=== PATIENT | female | born 1950 | race Caucasian/White ===

== ENCOUNTER 2016-12-26 12:23 | Inpatient (IN) | payer MEDICARE, OTHER ==
[2016-12-26] VITALS (9 sets, daily range): BP systolic 110–146; BP diastolic 51–92; PULSE 48–70; RESP 10–16; O2SAT 95–100
[~2016-12-26] VITALS: Ht 167.6 cm; Wt 111.4 kg
[~2016-12-26 12:23] MED LIST: CITA10TA9 PO; CeFAZolin Inj 2 GM in IV Premix 1 EACH IV ONE; DICL75TA6 PO; ETOD400T PO; LOVA10TA PO; Lactated Ringer's 1,000 ML IV SCH; MULT-1007 PO; OMEG1CAP2 PO; SODIUM CHLORIDE 0.9% IV ONE; TRAM50TA2 PO; VANCOMYCIN IV ONE; ZLP5T PO
[2016-12-26] MEDS ORDERED: CeFAZolin Inj 2 gm / 50mL D5W IV ONE (13:14)
[2016-12-26] MEDS ORDERED: Vancomycin 1,000mg/200 mL NS IV ONE (13:14)
[2016-12-26] MEDS ORDERED: Lactated Ringer's 1,000 ML IV ONE (13:30)
[2016-12-26] MEDS ORDERED: LACT1CAP73 PO (14:06)
[2016-12-26] MEDS ORDERED: Lactated Ringer's 500 ML IV PRN (15:13)
[2016-12-26] MEDS ORDERED: Lactated Ringer's 1,000 ML IV SCH (15:13)
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
[2016-12-26] MEDS ORDERED: EPHEDrine Sulfate 50 mg/mL Inj IVPUSH PRN (15:15)
[2016-12-26] MEDS ORDERED: fentaNYL-PF 50 mCg/mL 2 mL Inj IVPUSH PRN (15:15)
[2016-12-26] MEDS ORDERED: Dexamethasone 4 mg/mL Inj IVPUSH PRN (15:15)
[2016-12-26] MEDS ORDERED: Ondansetron 2 mg/mL 2 mL Inj IVPUSH PRN (15:15)
[2016-12-26] MEDS ORDERED: Phenylephrine 10,000 mCg/mL Inj IVPUSH PRN (15:15)
[2016-12-26] MEDS ORDERED: HYDROmorphone 1 mg/mL Inj IVPUSH PRN (15:15)
[2016-12-26] MEDS ORDERED: MetoCLOpramide 5 mg/mL 2 mL Inj IVPUSH PRN (15:15)
[2016-12-26] MEDS ORDERED: Tranexamic Acid 100 mg/mL 10 mL Inj ONE (15:31)
[2016-12-26] MEDS ORDERED: Gentamicin 40 mg/mL 2 mL Inj IRRIGATION ONE (15:45)
[2016-12-26] MEDS ORDERED: fentaNYL-PF 50 mCg/mL 2 mL Inj ONE (17:08)
[2016-12-26] MEDS ORDERED: Propofol 10,000 mCg/mL 20 mL Inj ONE (17:08)
[2016-12-26] MEDS ORDERED: Bupivacaine-MPF 0.25%/EPI 30 mL Inj INFILTRATE ONE (17:30)
--- NOTE | 2016-12-26 17:53 | PCM.ANEP1 ---
Post Anesthesia PACU Phase 1 Assessment Vital Signs 78, 12, 110/92, 95%, 36.4 Vital Signs Date Time Temp Pulse Resp B/P Pulse Ox O2 Delivery O2 Flow Rate FiO2 12/26/16 13:30 CPAP/BIPAP 12/26/16 13:30 36.1 70 16 146/73 96 Room Air Anesthetic Administered: SAB Level of Alertness: Awake, talking LANG's with Equal Strength: No Pain: No Nausea or Vomiting: No CV Function & Hydration Stable: Yes Airway Device: NONE Oxygen Delivery: Simple Mask Lungs: Clear to Auscultation Dermatome Level: T10 (Umbilicus) Summary UNEVENTFUL SAB PACU Phase 2 Assessment Complications: No Follow up Care: No Patient Instructions Provided: N/A Caleb Lane MD December 26, 2016 17:53
--- NOTE | 2016-12-26 18:42 | NUR ---
Post Op Pt arrived to [facility] room 1010 at 1842 via her own bed. Pt A&Ox3. Denies any pain but states she still feels numb. Bandages C/D/I. Tucked pt in and oriented pt to room. Will give report to shift boss.
--- NOTE | 2016-12-26 19:03 | DRSVH ---
PROCEDURE: X-RAY PELVIS, ONE OR TWO VIEWS ([id number]) INDICATIONS: post op hip R. hip surgery TECHNIQUE: 2 view(s) of the pelvis acquired. COMPARISON: None. FINDINGS: Bones: No fractures or dislocations. No suspicious bony lesions. Expected postoperative alignment of right hip arthroplasty. Moderate left degeneration Soft tissues: Visualized bowel gas pattern is normal. No suspicious soft tissue calcifications. IMPRESSION: Expected postoperative alignment of right hip arthroplasty Dictated by: Remington Ramirez M.D. on 12/26/2016 at 19:00 Approved by: Remington Ramirez M.D. on 12/26/2016 at 19:01
[2016-12-26] MEDS ORDERED: Magnesium Hydroxide 10 mL Oral Concentration PO PRN (19:20)
[2016-12-26] MEDS ORDERED: MetoCLOpramide 5 mg/mL 2 mL Inj IV PRN (19:20)
[2016-12-26] MEDS ORDERED: diphenhydrAMINE 25 mg Capsule PO PRN (19:20)
[2016-12-26] MEDS ORDERED: Ondansetron 2 mg/mL 2 mL Inj IV PRN (19:20)
[2016-12-26] MEDS ORDERED: hydrOXYzine Pamoate 25 mg Capsule PO PRN (19:20)
[2016-12-26] MEDS ORDERED: Sodium Biphos-Phos 133 mL Enema RECTAL PRN (19:20)
[2016-12-26] MEDS ORDERED: HYDROcodone-APAP 5-325 mg Tablet PO PRN (19:20)
[2016-12-26] MEDS ORDERED: LORazepam 0.5 mg Tablet PO PRN (19:20)
[2016-12-26] MEDS ORDERED: Alum-Mag Hydrox-Simeth 30 mL Suspension PO PRN (19:20)
[2016-12-26] MEDS ORDERED: Ondansetron 8 mg ODT Tablet PO PRN (19:20)
[2016-12-26] MEDS: Lactated Ringer's 1,000 ML IV SCH (19:38)
--- NOTE | 2016-12-26 19:45 | OP ---
[address] [address] OPERATIVE REPORT PATIENT: ANDREIA WHYTE V : 1950 MR#: [id number] ADMIT: 12/26/2016 JOB ID: [id number] DATE OF SURGERY: 12/26/2016 PREOPERATIVE DIAGNOSIS(ES): Advanced osteoarthritis, right hip. POSTOPERATIVE DIAGNOSIS(ES): Advanced osteoarthritis, right hip. PROCEDURE: Total hip arthroplasty, right hip. SURGEON: Brian Pedraza MD NEUROPSYCHOLOGY DIRECTOR: Abbie Gregg PA-C (captain's assistant required due to the complexity of the operation) COMPLICATIONS: None. INDICATIONS: Advanced osteoarthritis creating significant disability and uncontrolled by conservative treatment options. The patient understands and accepts the potential for risks and complications, which include but is not limited to neurovascular and thromboembolic events, as well as potential for infection, dislocation, leg length inequality and implant failure. PROCEDURE IN DETAIL: The patient was prepped and draped in usual sterile fashion. An appropriate time-out was established. Radha Langenbeck approach was made. Dissection carried down to the deep fascia. External rotators tagged and released. Capsule was T'd, tagged, and released. The hip was dislocated. Standard femoral neck cut was made and the acetabulum was cleared of soft tissues. The acetabulum was progressively reamed from 49-55. A 56 outer bearing cup was placed in appropriate position and anteversion and abduction. A box osteotome utilized on the distal femur with progressive broaching to a #6 trial broach. Trial reductions performed and a -3.5 neck length with a dual mobility cup was trialed. Excellent stability, appropriate leg lengths and soft tissue tension was achieved. Final implant was placed. Repeat trial reductions with similar outcome and the construct was chosen and assembled. Hip was reduced after the final liner had been placed and the external rotators and capsule were repaired to bone. A #2 Quill was utilized for deep fascial closure, 2-0 Vicryl, 3-0, and a 4-0 intracuticular stitch was utilized for final skin closure. Sterile dressing was applied. The patient was returned to the recovery room in stable condition. She tolerated procedure well. Standard postoperative course recommended.
[2016-12-26 20:16] LABS: APPEARANCE,URINE HAZY (CLEAR,HAZY); COLOR,URINE STRAW (YELLOW); OCCULT BLOOD,URINE TRACE (NEGATIVE)
[2016-12-26 20:17] LABS: UROBILINOGEN,URINE NORMAL (NORMAL)
[2016-12-26] MEDS: Ketorolac 15 mg/mL Inj IV SCH (20:52)
[2016-12-26] MEDS ORDERED: L. A1CAP11 PO (20:56)
[2016-12-26] MEDS: oxyCODONE-Acetamin 5-325 mg Tablet PO PRN (23:17)
[2016-12-27] MEDS: oxyCODONE-Acetamin 5-325 mg Tablet PO PRN ×6 (00:01→20:39)
[2016-12-27] MEDS: Sodium Chloride LOK Flush 10 mL Syringe IV SCH ×3 (00:30→13:57)
[2016-12-27] MEDS: CeFAZolin Inj 2 GM in IV Premix 1 EACH IV SCH ×2 (00:39→08:32)
[2016-12-27 00:45] VITALS: BP 118/66; PULSE 59; RESP 18; O2SAT 98
[2016-12-27] MEDS ORDERED: Vancomycin 1,000 mg/200 mL NS IV ONE (01:30)
[2016-12-27] MEDS: Ketorolac 15 mg/mL Inj IV SCH ×2 (03:16→08:32)
--- NOTE | 2016-12-27 03:33 | NUR ---
Pain/activity Pt reporting pain up to 9/10 and was given Tordal per eMAR, followed shortly by Morphine 2mg IVP. Pain came down to 7/10 and pt was then started on PO pain meds. Initially started with 1 tab of Percocet and after 45 min pain level the same and additional percocet tablet given. Since then pt has been able to sleep and appears comfortabl. Pt placed on 1L O2 via NC to keep O2 sats above 92%, CPox in room. Pt also has a mouthpiece that she uses d/t having smaller airway. Bulky dressing to hip is CDI, pt has full sensation now, pedal pulse palpable, wiggling toes. Schumacher draining clear urine. Slowly advancing diet, so far pt has tolerated jello and was not hungry for more.
[2016-12-27 05:58] VITALS: BP 102/64; PULSE 61; RESP 16; O2SAT 95
[2016-12-27 05:58] LABS: BASOPHILS % (AUTO) 0.2 % (0-3); EOSINOPHILS % (AUTO) 0.4 % (0-5); Mean Corpuscular Volume 77.1 fL (81-100); NEUTROPHILS % (AUTO) 78.1 % (40-74); Platelet Count 291 bil/L (150-400)
--- NOTE | 2016-12-27 06:59 | PCM.PNORTH ---
Subjective Date of Service: December 27, 2016 Visit Information: Reason for Visit Right Hip Arthritis Surgery/Surgery Date R YAAKOV 12/26/16 Post-Op Day # Date of Admission: December 26, 2016 at 17:07 Hospital Day # Subjective Foundation sleeping this morning and easily awakened. Well positioned in bed and no complaints of pain. Patient's family member is in attendance at bedside. Discussed participation with physical therapy and likely discharge to home on postop day #2. Patient and family member have considered home health needs and do have family and friends that will be in attendance at home. We have discussed psychotherapist social worker and I have asked patient to speak with him today regarding any concerns or needs postdischarge for care. Postop General: No Complaints, No Shortness of Breath, No Chest Pain Pain Management: PO, IV Push Objective Exam Objective Alert and oriented 3 and pleasant. Interoperative dressing is clean dry and intact. Calf and thigh are soft and nontender. Toe wiggle and sensation are intact at right lower extremity distally Schumacher catheter is in place and working. Bilateral SCDs are in place. No gait yet as of this time with formal physical therapy. Vital Signs and I/O Vital Sign - Last Date Time Temp Pulse Resp B/P Pulse Ox O2 Delivery O2 Flow Rate FiO2 12/27/16 05:58 36.5 61 16 102/64 95 Room Air Intake and Output 12/26/16 12/26/16 12/27/16 Cumulative From/Thru 15:00 23:00 07:00 12/25/16 10:16 - 12/27/16 06:36 Intake Total 500 ml 710 ml 1069 ml 2279 ml Output Total 330 ml 380 ml 710 ml Balance 500 ml 380 ml 689 ml 1569 ml Intake Oral 400 ml 400 ml IV Total 500 ml 710 ml 669 ml 1879 ml Output Urine Total 130 ml 380 ml 510 ml Estimated Blood Loss 200 ml 200 ml # Bowel Movements 0 0 Lab & Micro Results Laboratory Tests Test 12/26/16 19:59 12/27/16 05:12 Urine Color Straw (YELLOW) Urine Appearance Hazy (CLEAR,HAZY) Urine pH 7.0 (5.0-8.0) Urine Specific Eph[place]im 1.010 (1.003-1.035) Urine Protein Negativemg/dL (NEG,TRACE) Urine Glucose (UA) Negativemg/dL (NEGATIVE) Urine Ketones Negativemg/dL (NEGATIVE) Urine Occult Blood Trace (NEGATIVE) Urine Nitrite Negative (NEGATIVE) Urine Bilirubin Negative (NEGATIVE) Urine Urobilinogen Normalmg/dL (NORMAL) Urine Leukocyte Esterase Negative (NEGATIVE) Urine RBC 0-2/hpf (0-2) Urine WBC 0-5/hpf (0-5) Urine Epithelial Cells Few/hpf (NONE-MOD) Urine Crystals None seen (NONE SEEN) Urine Bacteria Few/hpf (NONE-FEW) Urine Hyaline Casts None/lpf (NONE) Urine Granular Casts None seen (NONE SEEN) Urine Waxy Casts None seen (NONE SEEN) Urine Red Blood Cell Casts None seen (NONE SEEN) Urine White Blood Cell Casts None seen (NONE SEEN) Urine Mucus None seen (None Seen) Urine Trichomonas None seen (NONE SEEN) Urine Yeast None (NONE SEEN) Urinalysis Comment None Urine Culture Reflexed Not indicated White Blood Count 10.8th/mm3 (3.8-10.1) Red Blood Count 4.32mil/mm3 (3.90-5.20) Hemoglobin 10.8g/dL (12.0-15.6) Hematocrit 33.3% (35.0-46.0) Mean Corpuscular Volume 77.1fL (81-100) Mean Corpuscular Hemoglobin 25.0pg (27.0-35.0) Mean Corpuscular Hemoglobin Concent 32.4% (32.0-37.0) Red Cell Distribution Width 14.5% (12.3-15.4) Platelet Count 291bil/L (150-400) Neutrophils (%) (Auto) 78.1% (40-74) Lymphocytes (%) (Auto) 14.1% (14-46) Monocytes (%) (Auto) 7.0% (4-12) Eosinophils (%) (Auto) 0.4% (0-5) Basophils (%) (Auto) 0.2% (0-3) Result Diagram: 12/27/16 0512 General Appearance: Alert, Oriented X3, Cooperative, No Acute Distress Extremities: No Compartment Syndrom Noted, Thigh & Calf Soft/Nontender Postop Sensory Motor: Distal Motor Intact, Movement in Toes, Distal Sensation Intact Activity: Activity per PT, Ambulate with PT (weightbearing as tolerated on the right lower extremity using front wheeled walker) Catheters: Urethral 2 Way Schumacher (discontinue Schumacher on postop day #1 after first PT session.) Assessment & Plan Impression Jolynn Herron is a 66-year-old female seen today on postop day 1 from a right total hip arthroplasty performed on 12/26/[address] Brian Pedraza. She is in good spirits and her family is in attendance at bedside. She has no complaints at this time and she is prepared for physical therapy and discharge as appropriate. Problems: Plan Postoperative day #1 from right total hip arthroplasty performed on 12/26/[address] Brian Pedraza. Weight-bear as tolerated on the right lower extremity using front-wheeled walker. Continue formal physical therapy for mobility, gait and safety. Continue by mouth pain medication as needed avoiding IV pain medication as soon as possible. Continue Lovenox 40 mg subcutaneous daily 10 days postop with transition to ASA 81 mg EC by mouth twice a day for an additional 4 weeks postop for DVT prophylaxis. Change intraoperative dressing on postop day #2 Schumacher catheter is in place and working Discontinue her Schumacher catheter on postop day #1 after first PT session Bilateral SCDs are in place and working today. Nursing please measure and fit for bilateral thigh-high DESTINEE hose as ordered today. technical services representative please consult patient today for discharge planning with possible home health needs. Order placed. Follow-up in [address] [facility] orthopedic clinic with mid-level provider for wound check and suture removal. Follow-up in [address] [facility] orthopedic clinic with Dr. Brian Pedraza with AP pelvis and right crosstable lateral x-ray on arrival. Anticipate discharge to home with family has caregivers on postop day #2. VTE Prophylaxis: Sub-Q Enoxaparin (Lovenox 40 mg subcutaneous 10 days postop with transition to ASA 81 mg EC by mouth twice a day for another 4 weeks postop totaling approximately 6 weeks postoperative DVT prophylaxis), SCDs (bilateral SCDs), DESTINEE Hose (bilateral thigh-high DESTINEE hose) Dinh Whyte PA-C December 27, 2016 06:59
[2016-12-27 08:12] VITALS: BP 94/62; PULSE 64; RESP 16; O2SAT 95
--- NOTE | 2016-12-27 10:18 | NUR ---
Social work Note - Initial Assessment Jolynn Herron is a 66 yr old admitted for scheduled hip replacement. EMR reviewed: Pt has Medicare and [employer] life insurance. Her PCP is Dr Vinson. Pt has DPOA - Daughter Poornima Herron. No LTC, No VA benefits. Readmit score is 3 - See attached CM initial assessment. CLINICAL QUALITY MANAGER met with pt - introduced d/c planning and explained SW role. Pt lives at home alone. She has been independent at baseline. She states she would prefer that she go to SNF but understands that insurance may not authorize it. MD is recommending Home Health - Pt worked with PT today and PT is recommending Home Health. Pt has DME: [facility]. She has family in the area. CLINICAL QUALITY MANAGER provided choices list - Pt asked that a referral be sent to [facility]. Assessment: Pt had elective hip replacement - would benefit from Home Health Plan: Home with [facility] and family providing support. JESUS Sampson Addendum: 12/27/16 at 1027 by JODEE ROMANO SS Amended: Links added.
[2016-12-27] MEDS: Lactated Ringer's 1,000 ML IV SCH (12:00)
--- NOTE | 2016-12-27 12:06 | NUR ---
STUDENT NURSE SHIFT NOTE Pt postop day 1 YAAKOV. Pt is pleasant and a&o x3. Pain has been well-controlled at with scheduled Toradol and PRN oxycodone. Scheduled Toradol now DC'd. Pt up with P.T. today, which she tolerated well according to pt and P.T. Applied DESTINEE hose to both legs, and reapplied SCDs. Family will come back to work with P.T. in order to assist pt at home. Plan to hopefully discharge tomorrow. Addendum: 12/27/16 at 1209 by AMBER NAVA PRN pain med is percocet (oxycodone/acet)
--- NOTE | 2016-12-27 13:59 | NUR ---
POST-OP PROGRESS Percocet 2 tabs PO has been helpful for pain control. Patient rated her pain as 3-5/10 on her R hip. Tolerating liquids PO and her diet well. Denies nausea. No emesis noted. Denies SOB. Patient was able to get OOB with PT. Tolerated activity well. Dressing is CDI. IFC intact and draining to magda colored UO. Adis quique and SCD's are on.
[2016-12-27 14:34] VITALS: BP 108/68; PULSE 66; RESP 20; O2SAT 97
[2016-12-27 20:34] VITALS: BP 93/57; PULSE 72; RESP 18; O2SAT 91
[2016-12-28] MEDS: Sodium Chloride LOK Flush 10 mL Syringe IV SCH ×3 (02:28→15:26)
[2016-12-28] MEDS: oxyCODONE-Acetamin 5-325 mg Tablet PO PRN ×3 (02:28→20:49)
[2016-12-28] MEDS: Lactated Ringer's 1,000 ML IV SCH ×2 (04:40→21:20)
--- NOTE | 2016-12-28 05:05 | NUR ---
Pain Patient states tolerable pain however has not ambulated, has however slept majority of shift on 1L O2 d/t hx of AFIA. Dressings CDI. Denies nausea, CP, SOB, and abdominal discomfort. Encouraged deep breaths and coughs. Bed in low position, call light within reach and continued intentional rounding.
[2016-12-28 05:46] VITALS: BP 96/61; PULSE 74; O2SAT 98
[2016-12-28 11:00] VITALS: BP 99/52; PULSE 73; RESP 18; O2SAT 98
--- NOTE | 2016-12-28 11:29 | PCM.PNORTH ---
Subjective Date of Service: December 28, 2016 Visit Information: Reason for Visit Right Hip Arthritis Surgery/Surgery Date R YAAKOV 12/26/16 Post-Op Day # 2 Date of Admission: December 26, 2016 at 17:07 Hospital Day # Subjective Patient is having continued numbness on the lateral aspect of her right hip. She states it is around the operative area. She states she cannot feel pain but can feel pressure and has no decreased motor function. She has no sensation deficit in the left leg, groin or right lower leg. Patient states she has no pain. She states she worked with physical therapy and was hesitant to use her operative leg which caused her difficulties with ambulation as well as getting out of bed. Patient verbalized knowledge of her hip precautions. Postop General: No Complaints, No Shortness of Breath, No Chest Pain Pain Management: PO, IV Push Objective Exam Objective Patient sitting up in chair Vital Signs and I/O Vital Sign - Last Date Time Temp Pulse Resp B/P Pulse Ox O2 Delivery O2 Flow Rate FiO2 12/28/16 11:00 36.7 73 18 99/52 98 Room Air 12/28/16 05:46 2.00 Intake and Output 12/27/16 12/27/16 12/28/16 Cumulative From/Thru 15:00 23:00 07:00 12/25/16 10:16 - 12/28/16 06:47 Intake Total 431 ml 1120 ml 350 ml 4180 ml Output Total 300 ml 550 ml 1560 ml Balance 431 ml 820 ml -200 ml 2620 ml Intake Oral 1120 ml 350 ml 1870 ml IV Total 431 ml 2310 ml Output Urine Total 300 ml 550 ml 1360 ml Estimated Blood Loss 200 ml # Bowel Movements 0 0 Result Diagram: 12/27/16 0512 General Appearance: Alert, Oriented X3, Cooperative, No Acute Distress Extremities: Distal Pulses Palpable, No Compartment Syndrom Noted, Tenderness/ Swelling Noted Postop Sensory Motor: Distal Motor Intact, Movement in Toes, Distal Sensation Intact, NVI Distally SURGICAL WOUND : Wound Location/Description Perioperative dressing c/d/i Incision General Appearance: No Direct Observation Activity: Activity per PT, Ambulate with PT (weightbearing as tolerated on the right lower extremity using front wheeled walker) Assessment & Plan Impression Postop day #2 right total hip arthroplasty Problems: Plan Weightbearing: Weightbearing as tolerated from a walker DVT prophylaxis: Aspirin 81 mg twice a day 6 weeks Physical therapy for transfers, progressive ambulation, strengthening Wound care: Perioperative dressing should be changed to an island dressing today. Change as needed Analgesia: Oral pain management. Discharge plan: Discharge home vs home with HH tomorrow. Start outpatient physical therapy next week if not initiating home health PT. Follow-up plan: In 2 weeks at [facility] with PA for wound check and at [address] Pedraza with x-rays VTE Prophylaxis: Sub-Q Enoxaparin (Lovenox 40 mg subcutaneous 10 days postop with transition to ASA 81 mg EC by mouth twice a day for another 4 weeks postop totaling approximately 6 weeks postoperative DVT prophylaxis), SCDs (bilateral SCDs), DESTINEE Hose (bilateral thigh-high DESTINEE hose) Abbie Gregg PA-C December 28, 2016 11:29
[2016-12-28 15:09] VITALS: BP 102/61; PULSE 73; RESP 20; O2SAT 97
--- NOTE | 2016-12-28 16:39 | NUR ---
Social Work Note: D&A: Reviewed chart. Spoke with Prasanth and therapy. Medical team unsure on d/c date and plan. Met with pt. and daughter Poornima at bedside explained role. Pt. reports that she plans to go home at time of d/c. Pt. hopeful that she will qualify for home health. Pt. meets homebound criteria and feels that going to/from outpt. therapy will be a taxing effort. Updated Prasanth and F2F left in chart for signature. Abbie aware that order will need to be obtained from medical team for home health. Pt. signed important message from Medicare today at approximately 4:00pm. D/C date unknown at this time. Pt. confirms that [facility] preferred [facility] health provider. P: LOBSTER MAN to f/u closely for d/c planning needs. Pt. plans to d/c home with home health when medically stable. CLARISA/ to finalize with pt. prior to d/c. OWEN Bolton
--- NOTE | 2016-12-28 19:19 | NUR ---
Activity Pt's pain well controlled during shift with only using pain medication once, pt stated she felt like hip was still numb this AM. Able to work with PT twice and up to BR as well. Schumacher out at 0910 and pt able to void 500ml by 1100. Dressing is CDI and ice bag is in place. Bed in low, call light in reach, continue to monitor.
[2016-12-28 20:03] VITALS: BP 113/56; PULSE 82; RESP 16; O2SAT 93
[2016-12-29] MEDS: Sodium Chloride LOK Flush 10 mL Syringe IV SCH ×2 (01:15→11:05)
--- NOTE | 2016-12-29 02:36 | NUR ---
Pain Patient states she has had very little pain since surgery. Prior to bed patient stated her pain increased 4/10 as she got up to use bedside commode. Two Percocet were given. Patient sleeping with 1L O2 nasal canula at 96%. Vitals stable.
[2016-12-29] MEDS: oxyCODONE-Acetamin 5-325 mg Tablet PO PRN ×4 (05:44→15:46)
[2016-12-29 06:51] VITALS: BP 115/68; PULSE 70; RESP 16; O2SAT 96
--- NOTE | 2016-12-29 09:35 | PCM.PNORTH ---
Subjective Date of Service: December 29, 2016 Visit Information: Reason for Visit Right Hip Arthritis Surgery/Surgery Date R YAAKOV 12/26/16 Post-Op Day # 3 Date of Admission: December 26, 2016 at 17:07 Hospital Day # Subjective Patient states she has regained sensation on the lateral aspect of her hip and is having pain, however she states it is a tolerable amount of pain. Patient expresses concerns about going home as she feels she will have difficulty getting up from a chair or out of bed safely without dislocating her hip. She also expresses concerns with her ambulation in that she is weaker than she was before surgery and is worried about falling. Postop General: No Complaints, No Shortness of Breath, No Chest Pain Pain Management: PO, IV Push Objective Exam Objective Sitting up in bed Vital Signs and I/O Vital Sign - Last Date Time Temp Pulse Resp B/P Pulse Ox O2 Delivery O2 Flow Rate FiO2 12/29/16 06:51 36.8 70 16 115/68 96 Room Air 12/28/16 05:46 2.00 Intake and Output 12/28/16 12/28/16 12/29/16 Cumulative From/Thru 14:59 22:59 06:59 12/25/16 10:16 - 12/29/16 06:51 Intake Total 710 ml 650 ml 5540 ml Output Total 850 ml 850 ml 3260 ml Balance -140 ml -200 ml 2280 ml Intake Oral 710 ml 650 ml 3230 ml IV Total 2310 ml Output Urine Total 850 ml 850 ml 3060 ml Estimated Blood Loss 200 ml # Bowel Movements 0 0 Result Diagram: 12/27/16 0512 General Appearance: Alert, Oriented X3, Cooperative, No Acute Distress Extremities: Distal Pulses Palpable, No Compartment Syndrom Noted, Thigh & Calf Soft/Nontender Postop Sensory Motor: Distal Motor Intact, Movement in Toes, Distal Sensation Intact, NVI Distally SURGICAL WOUND : Wound Location/Description Island intact, but beginning to roll up at the edges. Incision General Appearance: No Direct Observation Activity: Activity per PT, Ambulate with PT (weightbearing as tolerated on the right lower extremity using front wheeled walker) Assessment & Plan Impression POD#3 right YAAKOV Problems: Plan Weightbearing: Weightbearing as tolerated from a walker DVT prophylaxis: Aspirin 81 mg twice a day 6 weeks Physical therapy for transfers, progressive ambulation, strengthening Wound care: Replace island dressing with a new island before discharge. Analgesia: Oral pain management. Discharge plan: Discharge home with HH today. Follow-up plan: In 2 weeks at [facility] with CLARISA for wound check and at [address] Pedraza with x-rays VTE Prophylaxis: Sub-Q Enoxaparin (Lovenox 40 mg subcutaneous 10 days postop with transition to ASA 81 mg EC by mouth twice a day for another 4 weeks postop totaling approximately 6 weeks postoperative DVT prophylaxis), SCDs (bilateral SCDs), DESTINEE Hose (bilateral thigh-high DESTINEE hose) Abbie Gregg PA-C December 29, 2016 09:35
--- NOTE | 2016-12-29 09:37 | PCM.DIORTH ---
Ortho Discharge Instruction Date of Service: December 29, 2016 Dates of Hospitalization Date of Hospital Admission December 26, 2016 at 17:07 Providers Admitting Physician: Brian Pedraza MD Primary Care Physician: Truong Vinson MD Attending Physician: Brian Pedraza MD Diet Discharge Diet: No restrictions Activity Discharge Activity-General: Be up and about, Balance rest and activity, Ice incision 3-5 time/day for 20min Right Lower Extremity: Weight Bearing as tolerated Dressing and Incisional Care Discharge Dressing Care: Keep dressing clean, dry & intact Discharge Hygiene: May shower (must not get dressings or incision wet), DO NOT soak incision under water, NO bathtub, hot tub or whirlpool Additional Instructions Discharge Instructions Weightbearing: Weightbearing as tolerated with a front wheeled walker DVT prophylaxis: Aspirin 81 mg twice a day 6 weeks Physical therapy for transfers, progressive ambulation, strengthening, and gait training with home health PT Wound care: Recommend keeping incision covered to avoid irritation at the incision site. Shower instructions: Do not get dressing or incision wet. Cover with saran wrap. Recommend sponge baths and/or bath aid. Analgesia: Percocet and Vistaril every 6 hours as needed for discomfort Follow-up plan: In 2 weeks at [facility] with CLARISA for wound check and at [address] Pedraza with x-rays Abbie Gregg PA-C December 29, 2016 09:37
[2016-12-29] MEDS ORDERED: ASPI-973 PO (09:39)
[2016-12-29] MEDS ORDERED: OXYC1TAB24 PO (09:39)
[2016-12-29] MEDS ORDERED: HYDR-3797 PO (09:39)
--- NOTE | 2016-12-29 09:41 | PCM.DC.ORT ---
Discharge Summary Date of Service: December 29, 2016 Date of Hospital Admission: December 26, 2016 at 17:07 Date of Surgery: December 26, 2016 Date of Discharge: December 29, 2016 Reason for Hospitalization: Right hip osteoarthritis Procedures Performed: Right total hip arthroplasty Hospital Course: The patient was admitted to the hospital on 12/26/2016 and underwent the above procedure. Antibiotic prophylaxis consisting of Ancef and vancomycin. The surgeon was Dr. Pedraza. A Schumacher was placed perioperatively. Patient tolerated the procedure well and was transferred to recovery room in stable condition. Schumacher was discontinued on postop day 1. Patient had physical therapy to work on ambulation and transfers. Weightbearing as tolerated with walker. Pain was managed with Dilaudid, Percocet, Vistaril, Toradol. DVT prophylaxis: Aspirin 81mg BID and SCDs. Hospital course was uncomplicated. Patient was able to perform adequately enough to be discharged home with on postop day 3. Follow-up: at [facility] 2 weeks postop for wound check and at [address] Pedraza with x-ray. Diagnosis at Time of Discharge S/p right total hip arthroplasty Problems: Disposition: Stable, discharged to home with home health Discharge Instructions: Weightbearing: Weightbearing as tolerated with a front wheeled walker DVT prophylaxis: Aspirin 81 mg twice a day 6 weeks Physical therapy for transfers, progressive ambulation, strengthening, and gait training with home health PT Wound care: Recommend keeping incision covered to avoid irritation at the incision site. Shower instructions: Do not get dressing or incision wet. Cover with saran wrap. Recommend sponge baths and/or bath aid. Analgesia: Percocet and Vistaril every 6 hours as needed for discomfort Follow-up plan: In 2 weeks at [facility] with PA for wound check and at [address] Pedraza with x-rays Aspirin (Aspirin) 81 Mg Tablet 81 MG PO BID PRN PRN DVT prophylaxis Citalopram (Citalopram) 10 Mg Tablet 10 MG PO HS Diclofenac ER (Diclofenac ER) 75 Mg Tablet 75 MG PO BID Hydroxyzine Pamoate (HydrOXYzine Pamoate) 25 Mg Capsule 25 MG PO Q4H PRN PRN For Restlessness L. Acidophilus/Pectin, [place] (Acidophilus Capsule) 7.5 Mg (30 Million Cell)- 100 Mg Capsule 1 EACH PO DAILY Lovastatin (Lovastatin) 10 Mg Tablet 20 MG PO HS oxyCODONE-Acetaminophen 5-325 mg (oxyCODONE-Acetaminophen 5-325 mg) 1 Each Tablet 1-2 TAB PO Q6H PRN PRN For Severe Pain Abbie Gregg PA-C December 29, 2016 09:41
--- NOTE | 2016-12-29 10:46 | NUR ---
Social Work: Readiness for Discharge D: EMR reviewed. Pt is on day 3 of hospitalization. ALEXANDRU confirmed order was placed for SW consult for HH. SW provided pt with choice list and pt chose [facility]. SW made referral and gave access. ALEXANDRU faxed completed F2F to [facility] and confirmed it was received. Pt to return home with [facility] for RN PT 3x a week per Ortho order/discharge instructions. ALEXANDRU confirmed HH process with pt. Pt is agreeable to discharge plan. Pt will likely discharge home today with friend via POV. SW will continue to follow. A: Pt for whom HH (RN PT) has been deemed medically necessary. P: Pt to return home with [facility] RN PT via POV with friend. ALEXANDRU confirmed [facility] will open with pt tomorrow. ALEXANDRU updated pt. Pt is agreeable to discharge plan. SW will continue to follow. OWEN Pérez
[2016-12-29] MEDS: Lactated Ringer's 1,000 ML IV SCH (12:42)
[2016-12-29 13:02] VITALS: BP 134/72; PULSE 65; RESP 18; O2SAT 93
--- NOTE | 2016-12-29 16:58 | NUR ---
Discharge Pt discharged at 1550 in w/c to private vehicle with daughter. Pt's dressing changed to Island and silverlon dressing re-wetted to activate. Pt given new ice bag and understands to ice incision 3-5x/day. Pain is well controlled 2/10 and medication given prior to discharge. Pt has discharge instructions, care notes and new rx's. Discharge teaching done on hip precautions and s/s of when to return to hospital. VSS, PRECIOUS, A&O x 3. Pt has all belongings and all questions answered.
== END 2016-12-29 15:54 | disposition home health service (06) | DRG 470 ==
LOC: SAS 12:23 → OSC 17:07
PROVIDERS: ADMIT Orthopaedic Surgery; ATTEND Orthopaedic Surgery
PROC: 0SR90JA Replacement of Right Hip Joint with Synthetic Substitute, Uncemented, Open Approach (ICD-10-PCS; principal; 2016-12-26 14:45)
DX: M16.11 Unilateral primary osteoarthritis, right hip (principal); E78.5 Hyperlipidemia, unspecified